=== PATIENT | male | born 1985 | race Caucasian/White ===

== ENCOUNTER 2022-06-17 15:02 | Outpatient (REF) | payer BC, SELFPAY ==
[2022-06-18 17:42] LABS: Rheumatoid Factor <8.6 IU/mL (<12.0)
[2022-06-19 10:48] LABS: Lyme Ab w Rflx to Lyme Confirm Negative (Negative)
[2022-06-19 13:14] LABS: ANA Interpretation Negative (Negative)
[2022-06-22 00:57] LABS: Anaplasma phagocytophilum Negative (Negative); B. miyamotoi PCR Negative (Negative); Babesia divergens/MO-1 Negative (Negative); Babesia duncani Negative (Negative); Babesia microti Negative (Negative); Ehrlichia chaffeensis Negative (Negative); Ehrlichia ewingii/canis Negative (Negative); Ehrlichia muris eauclairensis Negative (Negative)
== END 2022-06-17 15:03 | disposition home or self-care (01) ==
LOC: NCHCN 15:02
PROVIDERS: Visit Provider Nurse Practitioner Family
DX: G89.29 Other chronic pain (principal); M25.50 Pain in unspecified joint
CPT/HCPCS: 87798; 86038; 86431; 86618